=== PATIENT | male | born 1970 | race Caucasian/White ===

== ENCOUNTER 2016-12-20 16:48 | Emergency (ER) | payer BC, OTHER ==
[~2016-12-20] VITALS: Ht 167.6 cm; Wt 77.1 kg
[2016-12-20] MEDS ORDERED: NAPROSYN500 MG PO (19:28)
[2016-12-20] MEDS ORDERED: KEFLEX500 MG PO (19:28)
[2016-12-20 20:00] VITALS: BP 132/76
== END 2016-12-20 19:38 | disposition home or self-care (01) ==
LOC: ER 16:48
DX: S41.121A Laceration with foreign body of right upper arm, initial encounter (principal); F17.210 Nicotine dependence, cigarettes, uncomplicated; F10.99 Alcohol use, unspecified with unspecified alcohol-induced disorder; W26.8XXA Contact with other sharp object(s), not elsewhere classified, initial encounter; Y93.89 Activity, other specified; Y92.89 Other specified places as the place of occurrence of the external cause; Y99.8 Other external cause status